=== PATIENT | female | born 1975 | race Caucasian/White ===

== ENCOUNTER 2022-01-01 15:08 | Emergency (ER) | payer BC ==
[2022-01-01] MEDS ORDERED: Sodium Chloride 0.9% 1,000 ML IV ONE (15:38)
[2022-01-01 16:15] LABS: BLOOD UREA NITROGEN,BUN 9 mg/dL (7.0-18.0); CARBON DIOXIDE,CO2 26.3 mmol/L (21.0-32.0); CHLORIDE,CL 100 mmol/L (98-107); GLUCOSE RANDOM 152 mg/dL (74-106); POTASSIUM,K 3.7 mmol/L (3.5-5.1); SODIUM,NA 138 mmol/L (136-145)
[2022-01-01] MEDS ORDERED: Morphine 4 MG/ML VIAL IVPUSH ONE (17:13)
[2022-01-01] MEDS ORDERED: Sulfamethoxazole/Trimethoprim 800-160 MG Tab PO ONE (17:14)
[2022-01-01] MEDS ORDERED: Heparin Sodium 10 Units/ML 5 ML Syringe FLUSH STA (19:47)
[2022-01-01 22:47] VITALS: BP 125/76; PULSE 76
== END 2022-01-01 20:01 | disposition home or self-care (01) ==
LOC: MW.ED 15:08
DX: T81.40XA Infection following a procedure, unspecified, initial encounter (principal); Z88.0 Allergy status to penicillin
CPT/HCPCS: 36415; 80053; 83605; 85025; 87040; 87070; 87205; 93005; 96374; 99283; A9270; J1642; J2270; J7030

== ENCOUNTER 2022-04-26 00:13 | Emergency (ER) | payer BC ==
[2022-04-26] MEDS ORDERED: Acetaminophen 500 MG Tab PO ONE (00:43)
[2022-04-26 01:21] VITALS: BP 145/78; PULSE 97
== END 2022-04-26 01:21 | disposition home or self-care (01) ==
LOC: MW.ED 00:13
DX: U07.1 COVID-19 (principal); Z88.0 Allergy status to penicillin; Z79.899 Other long term (current) drug therapy; Z90.49 Acquired absence of other specified parts of digestive tract
CPT/HCPCS: 87635; 99283; A9270; 99284; U0002

== ENCOUNTER 2022-11-29 01:17 | Inpatient (IN) | payer BC ==
[2022-11-29] MEDS ORDERED: Sodium Chloride 0.9% 10 ML Syringe FLUSH PRN (01:52)
[2022-11-29] MEDS ORDERED: Sodium Chloride 0.9% 2.5 ML Syringe FLUSH PRN (01:52)
[2022-11-29 02:17] LABS: CARBON DIOXIDE,CO2 27.8 mmol/L (21.0-32.0); POTASSIUM,K 4.1 mmol/L (3.5-5.1)
[2022-11-29] MEDS ORDERED: Naloxone 0.4 MG/ML SDV IVPUSH ONE (03:59)
[2022-11-29] MEDS ORDERED: Iopamidol 755 MG/ML 500 ML Multipack Bottle IVPUSH ONE (06:21)
[2022-11-29 06:57] LABS: CORONAVIRUS COVID-19 NAA NEGATIVE (NEGATIVE); INFLUENZA A NAA NEGATIVE (NEGATIVE); INFLUENZA B NAA NEGATIVE (NEGATIVE)
[2022-11-29] MEDS ORDERED: Ondansetron 4 MG Tab.DIS PO PRN (07:21)
[2022-11-29] MEDS ORDERED: Polyethylene Glycol 3350 Powder 17 GM Packet PO PRN (07:21)
[2022-11-29] MEDS ORDERED: Ondansetron 4 MG/2 ML SDV IVPUSH PRN (07:21)
[2022-11-29] MEDS ORDERED: Albuterol 0.083% 2.5 MG/3 ML Neb Soln NEB PRN (07:21)
[2022-11-29] MEDS: Enoxaparin 40 MG/0.4 ML Syringe SUBCUT SCH (08:06)
[2022-11-29] MEDS ORDERED: NIRMATRELVIR PO SCH (09:00)
[2022-11-29] MEDS ORDERED: Levothyroxine 100 MCG Tab PO SCH (09:00)
[2022-11-29] MEDS ORDERED: RITONAVIR PO SCH (09:00)
[2022-11-29] MEDS: Aspirin 81 MG Tab.EC PO SCH (11:29)
[2022-11-29] MEDS: Cholecalciferol (Vitamin D3) 25 MCG Tab PO SCH (11:30)
[2022-11-29] MEDS: Acetaminophen 325 MG Tab PO PRN (19:52)
[2022-11-29] MEDS ORDERED: LORazepam 0.5 MG Tab PO PRN (21:00)
[2022-11-29] MEDS ORDERED: Melatonin 3 MG Tab PO PRN (21:00)
[2022-11-29] MEDS ORDERED: PROMETHAZINE 25 MG PO PRN (21:55)
[2022-11-29] MEDS ORDERED: Promethazine 25 MG Tab PO PRN (22:12)
[2022-11-29] MEDS: NIRAPARIB TOSYLATE PO SCH (22:30)
[2022-11-29] MEDS: Ibuprofen 600 MG Tab PO PRN (22:38)
[2022-11-30] MEDS: Enoxaparin 40 MG/0.4 ML Syringe SUBCUT SCH (06:59)
[2022-11-30] MEDS ORDERED: Levothyroxine 75 MCG Tab PO SCH (07:30)
[2022-11-30] MEDS ORDERED: Levothyroxine 100 MCG Tab PO SCH (07:30)
[2022-11-30] MEDS: buPROPion 150 MG Tab.ER PO SCH (08:47)
[2022-11-30] MEDS: Aspirin 81 MG Tab.EC PO SCH (08:47)
[2022-11-30] MEDS: Pantoprazole 40 MG Tab.CR PO SCH (08:47)
[2022-11-30] MEDS: traMADol 50 MG Tab PO PRN ×2 (08:47→21:39)
[2022-11-30] MEDS: Cholecalciferol (Vitamin D3) 25 MCG Tab PO SCH (08:48)
[2022-11-30] MEDS ORDERED: NIRAPARIB TOSYLATE 100 MG PO SCH (09:00)
[2022-11-30 09:27] LABS: CARBON DIOXIDE,CO2 29.7 mmol/L (21.0-32.0)
[2022-11-30] MEDS ORDERED: Morphine 2 MG/ML SYRINGE IVPUSH ONE (10:10)
[2022-11-30] MEDS ORDERED: LORazepam 2 MG/ML SDV IVPUSH ONE (11:09)
[2022-11-30] MEDS ORDERED: Divalproex Sodium Delayed-Release 500 MG Tab.CR PO ONE (11:11)
[2022-11-30] MEDS: Ibuprofen 600 MG Tab PO PRN ×2 (14:24→20:10)
[2022-11-30] MEDS: Acetaminophen 325 MG Tab PO PRN (15:52)
[2022-11-30] MEDS: NIRAPARIB TOSYLATE PO SCH (21:06)
[2022-11-30] MEDS: Morphine 2 MG/ML SYRINGE IVPUSH PRN (23:36)
[2022-12-01] MEDS: Ibuprofen 600 MG Tab PO PRN ×2 (07:28→13:01)
[2022-12-01] MEDS: traMADol 50 MG Tab PO PRN ×3 (08:54→22:21)
[2022-12-01] MEDS: Aspirin 81 MG Tab.EC PO SCH (08:54)
[2022-12-01] MEDS: buPROPion 150 MG Tab.ER PO SCH (08:54)
[2022-12-01] MEDS: Pantoprazole 40 MG Tab.CR PO SCH (08:54)
[2022-12-01] MEDS: Cholecalciferol (Vitamin D3) 25 MCG Tab PO SCH (08:55)
[2022-12-01] MEDS: metFORMIN 500 MG Tab.ER PO SCH (16:55)
[2022-12-01] MEDS: Morphine 2 MG/ML SYRINGE IVPUSH PRN (16:56)
[2022-12-01] MEDS: Acetaminophen 325 MG Tab PO PRN (20:49)
[2022-12-01] MEDS: NIRAPARIB TOSYLATE PO SCH (20:53)
[2022-12-01] MEDS ORDERED: Rosuvastatin 10 MG Tab PO SCH (21:00)
[2022-12-02] MEDS ORDERED: Divalproex Sodium 500 MG Tab.ER PO SCH (08:00)
[2022-12-02] MEDS: metFORMIN 500 MG Tab.ER PO SCH (08:03)
[2022-12-02] MEDS: buPROPion 150 MG Tab.ER PO SCH (08:03)
[2022-12-02] MEDS: Aspirin 81 MG Tab.EC PO SCH (08:03)
[2022-12-02] MEDS: traMADol 50 MG Tab PO PRN ×2 (08:04→14:21)
[2022-12-02] MEDS: Pantoprazole 40 MG Tab.CR PO SCH (08:05)
[2022-12-02] MEDS: Cholecalciferol (Vitamin D3) 25 MCG Tab PO SCH (08:07)
[2022-12-02] MEDS: Acetaminophen 325 MG Tab PO PRN (11:29)
[2022-12-02] MEDS ORDERED: Clopidogrel 75 MG Tab PO SCH (12:00)
[2022-12-02] MEDS: Morphine 2 MG/ML SYRINGE IVPUSH PRN (12:49)
[2022-12-02 15:00] VITALS: BP 116/72; PULSE 92
[2022-12-04 12:06] LABS: PROTEIN S, FREE 125 % (61-136); PROTEIN S, TOTAL 147 % (60-150)
== END 2022-12-02 16:20 | disposition home or self-care (01) | DRG 45 ==
LOC: MW.ED 01:17 → MW.MS 06:16
PROVIDERS: ADMIT Internal Medicine; ATTEND Internal Medicine
DX: I63.89 Other cerebral infarction (principal); G93.6 Cerebral edema; R47.01 Aphasia; G43.909 Migraine, unspecified, not intractable, without status migrainosus; E11.9 Type 2 diabetes mellitus without complications; G89.29 Other chronic pain; M54.9 Dorsalgia, unspecified; C56.9 Malignant neoplasm of unspecified ovary; Z20.822 Contact with and (suspected) exposure to COVID-19; F41.9 Anxiety disorder, unspecified; G81.91 Hemiplegia, unspecified affecting right dominant side; D63.8 Anemia in other chronic diseases classified elsewhere; G47.00 Insomnia, unspecified; Z88.0 Allergy status to penicillin; Z79.899 Other long term (current) drug therapy; Z79.84 Long term (current) use of oral hypoglycemic drugs; Z85.850 Personal history of malignant neoplasm of thyroid; Z90.49 Acquired absence of other specified parts of digestive tract; Z98.890 Other specified postprocedural states; Z90.81 Acquired absence of spleen; Z90.721 Acquired absence of ovaries, unilateral; Z90.6 Acquired absence of other parts of urinary tract; Z95.828 Presence of other vascular implants and grafts; Z79.82 Long term (current) use of aspirin
CPT/HCPCS: 0240U; 36415; 36600; 70450; 70450-26; 70496; 70496-26; 70498; 70498-26; 70551; 70551-26; 71045; 71045-26; 71275; 71275-26; 80048; 80053; 80061; 80305-QW; 80307; 81001; 81241; 82607; 82803; 83036; 83735; 84100; 84443; 85025; 85300; 85301; 85302; 85303; 85305; 85306; 85379; 85610; 85613; 85730; 86147; 92507-GN; 92523-GN-52; 93005; 93010; 93246; 93306; 97161-GP; 97530-GP; 99222; 99233; 99238; 99285; A9270-GY; J1650; J2060; J2270; J3490; Q9967

== ENCOUNTER 2023-05-13 16:02 | Emergency (ER) | payer BC ==
[2023-05-13 17:34] LABS: HEMOGLOBIN 5.3 g/dL (12.0-16.0); MEAN CORPUSCULAR HEMOGLOBIN 32.9 pg (27.0-32.0); MEAN CORPUSCULAR HGB CONC 33.1 g/dL (31.0-37.0); MEAN CORPUSCULAR VOLUME 99.4 fL (80.0-98.0); MEAN PLATELET VOLUME 10.5 fL (7.40-12.00); RED BLOOD CELL COUNT 1.61 M/uL (4.30-5.90); RETICULOCYTE ABSOLUTE 16.3 K/uL (20-80); WHITE BLOOD CELL COUNT,WBC 7.67 K/uL (4.0-11.0)
[2023-05-13] MEDS ORDERED: Acetaminophen 325 MG Tab PO ONE (17:39)
[2023-05-13] MEDS ORDERED: Acetaminophen 500 MG Tab ONE (17:51)
[2023-05-13] MEDS ORDERED: Acetaminophen 500 MG Tab PO ONE (17:52)
[2023-05-13 18:20] LABS: PERCENT FE SATURATION 51.06 % (20-55)
[2023-05-13 18:29] LABS: BILIRUBIN DIRECT 0.1 mg/dL (0.0-0.5)
[2023-05-13] MEDS ORDERED: traMADol 50 MG Tab PO ONE (19:23)
[2023-05-13] MEDS ORDERED: Lidocaine 4% 1 each Patch TOP STA (22:23)
[2023-05-13] MEDS ORDERED: Heparin Sodium 100 Units/ML 3 ML Syringe FLUSH STA (23:30)
[2023-05-13] MEDS ORDERED: Heparin Sodium 100 Units/ML 3 ML Syringe ONE (23:30)
[2023-05-14 00:42] VITALS: BP 127/77; PULSE 77
== END 2023-05-14 00:42 | disposition home or self-care (01) ==
LOC: MW.ED 16:02
DX: D64.9 Anemia, unspecified (principal); Z88.0 Allergy status to penicillin; Z79.899 Other long term (current) drug therapy
CPT/HCPCS: 36415; 36430; 82248; 82607; 82728; 82746; 83010; 83550; 83615; 85027; 85045; 86850; 86900; 86901; 86920; 99284; A9270; J1642; P9016; 99283

== ENCOUNTER 2024-03-17 16:49 | Emergency (ER) | payer BC ==
[2024-03-17 17:30] VITALS: BP 180/111; PULSE 95
[2024-03-17] MEDS ORDERED: Sodium Chloride 0.9% 2.5 ML Syringe FLUSH PRN (17:56)
[2024-03-17] MEDS ORDERED: Sodium Chloride 0.9% 10 ML Syringe FLUSH PRN (17:56)
== END 2024-03-17 18:50 ==
LOC: MW.ED 16:49
DX: D69.6 Thrombocytopenia, unspecified (principal); D64.9 Anemia, unspecified; R23.3 Spontaneous ecchymoses; Z79.82 Long term (current) use of aspirin; Z79.899 Other long term (current) drug therapy; Z88.0 Allergy status to penicillin; Z79.02 Long term (current) use of antithrombotics/antiplatelets; Z75.8 Other problems related to medical facilities and other health care
CPT/HCPCS: 99284

== ENCOUNTER 2024-06-29 21:11 | Emergency (ER) | payer BC ==
[2024-06-29 23:08] LABS: BASOPHILS ABSOLUTE AUTO 0.02 K/uL (0.00-0.20); BASOPHILS PERCENT AUTO 0.2 % (0.0-1.0); EOSINOPHILS ABSOLUTE AUTO 0.05 K/uL (0.00-0.45); EOSINOPHILS PERCENT AUTO 0.4 % (0.0-6.0); HEMATOCRIT 36.1 % (37.0-47.0); IMMATURE GRAN ABSOLUTE AUTO 0.03 K/uL (0.00-0.05); IMMATURE GRAN PERCENT AUTO 0.3 % (0.0-0.4); LYMPHOCYTES ABSOLUTE AUTO 2.05 K/uL (1.00-4.80); MEAN CORPUSCULAR HEMOGLOBIN 35.3 pg (28.0-32.0); MEAN CORPUSCULAR HGB CONC 33.2 g/dL (32.0-36.0); MEAN CORPUSCULAR VOLUME 106.2 fL (83.0-99.0); MEAN PLATELET VOLUME 9.6 fL (9.4-12.3); MONOCYTES ABSOLUTE AUTO 0.97 K/uL (0.00-0.80); MONOCYTES PERCENT AUTO 8.5 % (0.0-8.0); NEUTROPHILS ABSOLUTE AUTO 8.24 K/uL (1.80-7.70); NEUTROPHILS PERCENT AUTO 72.6 % (41.0-71.0); PLATELET COUNT,PLT 282 K/uL (150-400); WHITE BLOOD CELL COUNT,WBC 11.36 K/uL (3.9-11.3)
[2024-06-29 23:30] LABS: A/G RATIO 0.8 (0.9-1.6); ALBUMIN 3.4 g/dL (3.4-5.0); BILIRUBIN TOTAL 0.2 mg/dL (0.2-1.0); CALCIUM 9.4 mg/dL (8.5-10.1); CARBON DIOXIDE,CO2 29.2 mmol/L (21.0-32.0); CREATININE 0.8 mg/dL (0.6-1.0); EST CRCL DRUG DOSING (CG) 74.26 mL/min; MAGNESIUM 1.4 mg/dL (1.8-2.4); POTASSIUM,K 4.1 mmol/L (3.5-5.1); PROTEIN TOTAL,TP 7.6 g/dL (6.4-8.2)
[2024-06-29] MEDS: HYDROmorphone 1 MG/ML Syringe IVPUSH ONE (23:42)
[2024-06-30 00:52] LABS: APPEARANCE,URINE CLEAR; BILIRUBIN,URINE NEGATIVE (NEGATIVE); COLOR,URINE YELLOW; GLUCOSE,URINE NEGATIVE (NEGATIVE); KETONES,URINE NEGATIVE (NEGATIVE); LEUKOCYTE ESTERASE,URINE NEGATIVE (NEGATIVE); NITRITE,URINE NEGATIVE (NEGATIVE); OCCULT BLOOD,URINE NEGATIVE (NEGATIVE); PROTEIN,URINE 30 mg/dL (NEGATIVE); UROBILINOGEN,URINE 0.2 EU/dL (<2.0)
[2024-06-30] MEDS: Iopamidol 755 MG/ML 500 ML Multipack Bottle IVPUSH ONE (00:52)
[2024-06-30 00:58] LABS: EPITHELIAL CELLS,URINE RARE (NONE-FEW); RBC,URINE 0-2 (0-2/HPF)
[2024-06-30 00:59] LABS: BACTERIA,URINE RARE (NEGATIVE)
[2024-06-30] MEDS ORDERED: Magnesium Sulfate/Water Premix 20 GM/500 ML BAG IV SCH (02:45)
[2024-06-30] MEDS: Magnesium Sulfate/Water Premix 2 GM in Premix Bag 1 BAG IV STA (02:56)
[2024-06-30] MEDS: Ondansetron 4 MG Tab.DIS PO ONE (03:22)
[2024-06-30 05:06] VITALS: BP 152/96; PULSE 90
== END 2024-06-30 05:05 | disposition home or self-care (01) ==
LOC: MW.ED 21:11
DX: R10.13 Epigastric pain (principal); E83.42 Hypomagnesemia; E78.00 Pure hypercholesterolemia, unspecified; I10 Essential (primary) hypertension; Z86.73 Personal history of transient ischemic attack (TIA), and cerebral infarction without residual deficits; Z90.49 Acquired absence of other specified parts of digestive tract; Z79.84 Long term (current) use of oral hypoglycemic drugs; Z79.899 Other long term (current) drug therapy; Z88.0 Allergy status to penicillin
CPT/HCPCS: 36415; 74177; 80053; 81001; 83690; 83735; 84703; 85025; 96365; 96366; 96375; 99284; A9270; J1171; J3475; Q9967

== ENCOUNTER 2024-08-24 10:26 | Emergency (ER) | payer BC ==
[2024-08-24 11:45] LABS: BASOPHILS ABSOLUTE AUTO 0.03 K/uL (0.00-0.20); BASOPHILS PERCENT AUTO 0.3 % (0.0-1.0); EOSINOPHILS ABSOLUTE AUTO 0.22 K/uL (0.00-0.45); EOSINOPHILS PERCENT AUTO 2.5 % (0.0-6.0); HEMATOCRIT 34.6 % (37.0-47.0); HEMOGLOBIN 11.4 g/dL (12.0-16.0); IMMATURE GRAN ABSOLUTE AUTO 0.03 K/uL (0.00-0.05); IMMATURE GRAN PERCENT AUTO 0.3 % (0.0-0.4); LYMPHOCYTES ABSOLUTE AUTO 2.52 K/uL (1.00-4.80); MEAN CORPUSCULAR HEMOGLOBIN 35.1 pg (28.0-32.0); MEAN CORPUSCULAR HGB CONC 32.9 g/dL (32.0-36.0); MEAN CORPUSCULAR VOLUME 106.5 fL (83.0-99.0); MEAN PLATELET VOLUME 9.3 fL (9.4-12.3); MONOCYTES ABSOLUTE AUTO 0.84 K/uL (0.00-0.80); MONOCYTES PERCENT AUTO 9.7 % (0.0-8.0); NEUTROPHILS ABSOLUTE AUTO 5.05 K/uL (1.80-7.70); NEUTROPHILS PERCENT AUTO 58.2 % (41.0-71.0); PLATELET COUNT,PLT 292 K/uL (150-400); RED BLOOD CELL COUNT 3.25 M/uL (4.10-5.30); WHITE BLOOD CELL COUNT,WBC 8.69 K/uL (3.9-11.3)
[2024-08-24 11:56] LABS: INR 1.19 (0.86-1.11)
[2024-08-24] MEDS: Sodium Chloride 0.9% 1,000 ML IV STA (11:56)
[2024-08-24 12:12] LABS: HCG QUALITATIVE,SERUM NEGATIVE (NEG)
[2024-08-24 12:19] LABS: A/G RATIO 0.8 (0.9-1.6); ALANINE AMINOTRANSFERASE,ALT 47 IU/L (14-63); ALBUMIN 3.2 g/dL (3.4-5.0); ALKALINE PHOSPHATASE 80 U/L (46-116); ASPARTATE AMNIOTRANSFERASE,AST 36 IU/L (15-37); BILIRUBIN TOTAL 0.2 mg/dL (0.2-1.0); BLOOD UREA NITROGEN,BUN 21 mg/dL (7.0-18.0); CALCIUM 9.2 mg/dL (8.5-10.1); CARBON DIOXIDE,CO2 30.2 mmol/L (21.0-32.0); CHLORIDE,CL 102 mmol/L (98-107); CREATININE 0.9 mg/dL (0.6-1.0); EST CRCL DRUG DOSING (CG) 66.01 mL/min; GLUCOSE RANDOM 98 mg/dL (74-106); LIPASE 36 U/L (16-77); MAGNESIUM 2.1 mg/dL (1.8-2.4); POTASSIUM,K 4.5 mmol/L (3.5-5.1); PROTEIN TOTAL,TP 7.3 g/dL (6.4-8.2); SODIUM,NA 138 mmol/L (136-145)
[2024-08-24 12:20] LABS: ESTIMATED GFR 79 mL/min (>60)
[2024-08-24 13:54] VITALS: BP 136/85; PULSE 66
== END 2024-08-24 13:53 | disposition home or self-care (01) ==
LOC: MW.ED 10:26
DX: R42 Dizziness and giddiness (principal); B34.9 Viral infection, unspecified; D53.9 Nutritional anemia, unspecified; I10 Essential (primary) hypertension; E78.00 Pure hypercholesterolemia, unspecified; Z88.0 Allergy status to penicillin; Z79.890 Hormone replacement therapy; Z79.84 Long term (current) use of oral hypoglycemic drugs; Z79.899 Other long term (current) drug therapy; Z90.49 Acquired absence of other specified parts of digestive tract; Z75.8 Other problems related to medical facilities and other health care
CPT/HCPCS: 36415; 80053; 83690; 83735; 84484; 84703; 85025; 85610; 86308; 87428; 93005; 96361; 96374; 99284; J1642; J7030; 93010; 99283

== ENCOUNTER 2024-12-08 20:01 | Emergency (ER) | payer BC ==
[2024-12-08 21:10] VITALS: BP 143/85; PULSE 68
[2024-12-08] MEDS ORDERED: Sodium Chloride 0.9% 2.5 ML Syringe FLUSH PRN (21:21)
[2024-12-08] MEDS ORDERED: Sodium Chloride 0.9% 20 ML SDV IV PRN (21:21)
[2024-12-08] MEDS ORDERED: Sodium Chloride 0.9% 10 ML Syringe FLUSH PRN (21:21)
[2024-12-08] MEDS: Ondansetron 4 MG/2 ML SDV IVPUSH ONE ×2 (22:02→23:55)
[2024-12-08] MEDS: Sodium Chloride 0.9% 1,000 ML IV SCH (22:02)
[2024-12-08 22:11] LABS: EOSINOPHILS ABSOLUTE AUTO 0.03 K/uL (0.00-0.45); EOSINOPHILS PERCENT AUTO 0.4 % (0.0-6.0); HEMATOCRIT 30.8 % (37.0-47.0); HEMOGLOBIN 10.1 g/dL (12.0-16.0); IMMATURE GRAN ABSOLUTE AUTO 0.06 K/uL (0.00-0.05); IMMATURE GRAN PERCENT AUTO 0.8 % (0.0-0.4); LYMPHOCYTES ABSOLUTE AUTO 1.03 K/uL (1.00-4.80); MEAN CORPUSCULAR HEMOGLOBIN 32.5 pg (28.0-32.0); MEAN CORPUSCULAR HGB CONC 32.8 g/dL (32.0-36.0); MEAN PLATELET VOLUME 9.7 fL (9.4-12.3); MONOCYTES ABSOLUTE AUTO 0.72 K/uL (0.00-0.80); MONOCYTES PERCENT AUTO 9.1 % (0.0-8.0); NEUTROPHILS PERCENT AUTO 76.7 % (41.0-71.0); NRBC ABSOLUTE 0.24 K/uL (0.00-0.02); PLATELET COUNT,PLT 352 K/uL (150-400); RED BLOOD CELL COUNT 3.11 M/uL (4.10-5.30); WHITE BLOOD CELL COUNT,WBC 7.94 K/uL (3.9-11.3)
[2024-12-08 22:38] LABS: A/G RATIO 0.6 (0.9-1.6); ALBUMIN 2.5 g/dL (3.4-5.0); BILIRUBIN TOTAL 0.3 mg/dL (0.2-1.0); CALCIUM 8.5 mg/dL (8.5-10.1); CARBON DIOXIDE,CO2 28.9 mmol/L (21.0-32.0); CREATININE 0.6 mg/dL (0.6-1.0); EST CRCL DRUG DOSING (CG) 97.94 mL/min; MAGNESIUM 1.6 mg/dL (1.8-2.4); POTASSIUM,K 3.2 mmol/L (3.5-5.1); PROTEIN TOTAL,TP 6.4 g/dL (6.4-8.2)
[2024-12-08] MEDS: Lidocaine 4% Patch TOP PRN (23:55)
[2024-12-08] MEDS: HYDROmorphone 1 MG/ML Syringe IVPUSH ONE (23:55)
[2024-12-09] MEDS: Heparin Sodium 10 Units/ML 5 ML Syringe FLUSH STA (00:29)
== END 2024-12-09 00:33 | disposition left against medical advice (07) ==
LOC: MW.ED 20:01
DX: K56.609 Unspecified intestinal obstruction, unspecified as to partial versus complete obstruction (principal); I10 Essential (primary) hypertension; E78.00 Pure hypercholesterolemia, unspecified; Z90.49 Acquired absence of other specified parts of digestive tract; Z79.899 Other long term (current) drug therapy; Z79.01 Long term (current) use of anticoagulants; Z88.0 Allergy status to penicillin
CPT/HCPCS: 36415; 74018; 80053; 83735; 84702; 85025; 96361; 96374; 96375; 96376; 99284; A9270; J1171; J1642; J2405; J7030; 99283